=== PATIENT | male | born 1995 | race Two or more races ===

== ENCOUNTER 2016-07-07 18:56 | Emergency (ER) | payer MEDICAID ==
[~2016-07-07 18:56] MED LIST: ACYCLOVIR200 M1 PO; AZITHROMYCIN250 M1 PO; COUGH DROPS1 EAC1 PO; NO HOME MEDS; PRILOSEC20 M1 PO; ROBITUSSIN LON118 M1 PO; ZITHROMAX250 M1 PO
[2016-07-07] MEDS ORDERED: NO HOME MEDICATION (19:23)
[2016-07-07] MEDS ORDERED: TRIAMCINOLONE A15 G2 TP (19:27)
== END 2016-07-07 19:52 ==
LOC: EDMED 18:56
DX: L30.9 Dermatitis, unspecified (principal)